=== PATIENT | female | born 1950 | race Caucasian/White ===

== ENCOUNTER → 2017-03-13 | Outpatient (CLI) | payer MEDICARE ==
[~2017-03-13] MED LIST: ASPI325T33 PO; B COTAB3 PO; CALC500T21 PO; DENO60P SQ; DICL75TA PO; FERR324T4 PO; HYDR-3580 PO; LATA.005%O OU; LATA0.002 EACH EYE; NORC7.5T PO; PRAV40TA2 PO; TRAM50TA PO; VITA500T10 PO; XARE10TA PO
[2017-03-13 09:33] LABS: BASOPHIL # 0.1 TH/MM3 (0-0.2); EOSINOPHIL # 0.2 TH/MM3 (0-0.4); EOSINOPHIL % 3.4 % (0.0-4.0); HEMATOCRIT 36.2 % (35.0-46.0); HEMO FLAGS DIFF FINAL; LYMPHOCYTE # 1.9 TH/MM3 (1.0-4.8); MEAN CELL VOLUME 87.5 FL (80.0-100.0); MEAN CORPUSCULAR HEMOGLOBIN 29.6 PG (27.0-34.0); MEAN CORPUSCULAR HGB CONC 33.8 % (32.0-36.0); MONO % 10.3 % (0.0-8.0); NEUT % 52.3 % (16.0-70.0); PLATELET COUNT 230 TH/MM3 (150-450); RED BLOOD COUNT 4.13 MIL/MM3 (4.00-5.30); RED CELL DISTRIBUTION WIDTH 12.9 % (11.6-17.2); WHITE BLOOD COUNT 5.7 TH/MM3 (4.0-11.0)
[2017-03-13 09:38] LABS: BLOOD, URINE TRACE (NEG); GLUCOSE,URINE NEG (NEG); KETONE, URINE NEG (NEG); NITRITE,URINE NEG (NEG); PH, URINE 5.5 (5.0-8.5); SQUAMOUS EPITHELIAL CELL URINE 1 /hpf (0-5); TRANSITIONAL EPI CELLS, URINE <1 /hpf; URINE COLOR LIGHT-YELLOW (YELLW/STRAW)
[2017-03-13 09:42] LABS: APTT (PATIENT) 25.6 SEC (24.3-30.1)
[2017-03-13 09:42] LABS: COMMENT (UR) CATH-CULT NOT IND; CULTURE IF INDICATED CATH CULTURE NOT IND
[2017-03-13 09:58] LABS: BICARBONATE 27.7 MEQ/L (21.0-32.0); POTASSIUM 4.6 MEQ/L (3.5-5.1)
--- NOTE | 2017-03-14 14:40 | EKG ---
Date Performed: 03/13/2017 Time Performed: 08:23:42 PTAGE: 66 years EKG: Sinus rhythm POSSIBLE LEFT ATRIAL ENLARGEMENT BORDERLINE ECG Compared to prior tracing no significant change PREVIOUS TRACING : 07/01/2013 09.11 DOCTOR: Krissy Olguin Interpretating Date/Time 03/14/2017 14:35:02
== END ==
LOC: CPRE 07:54
PROVIDERS: ATTEND Orthopaedic Surgery Orthopaedic Surgery of the Spine
DX: Z01.810 Encounter for preprocedural cardiovascular examination (principal); Z01.812 Encounter for preprocedural laboratory examination; Z79.01 Long term (current) use of anticoagulants; M16.12 Unilateral primary osteoarthritis, left hip; R94.31 Abnormal electrocardiogram [ECG] [EKG]
CPT/HCPCS: 36415; 80048; 81001; 85025; 85610; 85730; 93005

== ENCOUNTER 2017-03-23 05:43 | Inpatient (IN) | payer MEDICARE ==
[~2017-03-23] VITALS: Ht 162.6 cm; Wt 79.9 kg
[~2017-03-23 05:43] MED LIST changes: -ASPI325T33 PO; -B COTAB3 PO; -CALC500T21 PO; -FERR324T4 PO; -HYDR-3580 PO; -LATA.005%O OU; -NORC7.5T PO; -VITA500T10 PO; -XARE10TA PO
[2017-03-23] MEDS ORDERED: POVIDONE IODINE 5% (ANTISEPSIS KIT) 4 APPLICATIONS EACH NARE PRN (06:30)
[2017-03-23] MEDS ORDERED: ceFAZolin 2 GM PREMIX 50 ML IV SCH (06:30)
[2017-03-23] MEDS ORDERED: POVIDONE IODINE 7.5% SCRUB 118 ML BOTTLE TOPICAL SCH (06:30)
[2017-03-23] MEDS ORDERED: SODIUM CHLORID 0.9% 500 ML IV PRN (06:30)
[2017-03-23] MEDS ORDERED: INSULIN HUMAN REGULAR 1,000 UNITS/10 ML VIAL SQ PRN (06:30)
[2017-03-23] MEDS ORDERED: CHLORHEXIDINE GLUCONATE 2 % 1 PACK (2 CLOTHS) TOPICAL PRN (06:30)
[2017-03-23] MEDS ORDERED: LACTATED RINGER'S 1000 ML IV PRN (06:30)
[2017-03-23] MEDS ORDERED: EXPAREL PERI-ARTICULAR INJECTION (TOTAL VOL. 60 ML) P-ARTICULR SCH ×2 (06:30)
[2017-03-23] MEDS ORDERED: SODIUM CHLORIDE 0.9% IV SCH (06:30)
[2017-03-23] MEDS ORDERED: METOPROLOL TARTRATE 25 MG TAB PO PRN (06:30)
[2017-03-23] MEDS ORDERED: VANCOMYCIN 1000 MG/NS 250 ML (for <70 kg) IV SCH ×2 (06:30)
[2017-03-23] MEDS ORDERED: TRANEXAMIC ACID IV SCH (06:30)
[2017-03-23] MEDS ORDERED: GENTAMICIN SULFATE 80 MG/2 ML VIAL ONE ×2 (07:12→07:17)
[2017-03-23] MEDS ORDERED: APREPITANT 40 MG CAP ONE (07:58)
[2017-03-23] MEDS ORDERED: ACETAMINOPHEN 1000 MG/100 ML 100 ML IV ONE (07:58)
[2017-03-23] MEDS ORDERED: MORPHINE SULFATE 8 MG/ML INJ IM PRN (09:15)
[2017-03-23] MEDS ORDERED: NALOXONE HCL 0.4 MG/ML AMP IV PUSH PRN (09:15)
[2017-03-23] MEDS ORDERED: MISCELLANEOUS PHARMACY INFORMATION XX ONE (09:15)
[2017-03-23] MEDS ORDERED: ACETAMINOPHEN/HYDROcodone 325 MG/7.5 MG TAB PO PRN (09:15)
[2017-03-23] MEDS ORDERED: MISCELLANEOUS NURSING INFORMATION XX PRN (09:15)
[2017-03-23] MEDS ORDERED: Post-op Orders (for Pharmacy) XX ONE (09:15)
[2017-03-23] MEDS ORDERED: HYDR-3580 PO (09:18)
[2017-03-23] MEDS ORDERED: ASPI325T33 PO (09:18)
[2017-03-23] MEDS ORDERED: MORPHINE SULFATE 30 MG/30 ML PCA IV SCH (10:30)
--- NOTE | 2017-03-23 10:58 | PD.OP ---
cc: Sammy Sigala MD Operative Report Date of Surgery: Mar 23, 2017 Preoperative Diagnosis: Osteoarthritis left hip Postoperative Diagnosis: Same Procedure: Left total hip replacement arthroplasty, direct anterior exposure Anesthesia: Gen. Surgeon: Sammy Sigala Director Of Publications(s): GARY Francisco Operation and Findings: EBL: 400 cc INDICATION: This patient presents with significant hip pain related to osteoarthritis of the left hip. Despite extensive conservative care this patient continues to be painful and now presents for surgical treatment. NOTE: Kisha Francisco PA-C was present for the entire surgical procedure as my surveyor's assistant. In my medical opinion her skill and care was necessary for the proper management of this patient. COMPONENTS: COMPANY: [employer] CUP: Casar, 50 mm, 100 series, gription surface LINER: Altrx 32, neutral STEM: [place]ail, size 10, varus neck (125), hydroxyapatite-coated HEAD: Ceramic, 32 mm, +5, 12/14 taper PROCEDURE: This patient was brought to the operating room and anesthetized in the supine position and positioned on the fracture table with both legs held extended. The left hip and leg was scrubbed with alcohol followed by Hibiclens followed by ChloraPrep and draped sterilely. Antibiotics were given within routine time window and a timeout was done. A 4 inch incision was made starting 2 cm distal and 2 cm lateral to the anterior superior iliac spine. The fascia eric was opened longitudinally. The interval between the fascia eric and the rectus was opened down to the capsule of the hip joint. Retractors were positioned allowing good visualization of the capsule. This was opened longitudinally and flaps were created. Stay sutures were utilized. Exposure was excellent. The neck was cut at the proper location using fluoroscopy as a guide. The head was removed. Deep retractors were positioned allowing good visualization of the acetabulum. Acetabulum was deepened down to the floor starting with a proper size reamer and reaming up to 49 mm. A trial was utilized. Fluoroscopy was used to check position and confirmed satisfactory alignment. The rim was reamed with a 50 mm reamer and the final cup was positioned in approximately 20 of anteversion and 40-45 of abduction. Position was satisfactory. A single hole eliminator was positioned followed by the final liner. The lifting hook was utilized. The leg was dropped to the floor, maximally externally rotated and brought across the midline. Retractors were positioned. A box osteotome was utilized followed by progressive broaching to the proper stem size. Trial reduction showed excellent alignment and fit. With 60 of external rotation the leg was dropped to the floor without evidence of anterior subluxation. The wound was irrigated. The final stem was inserted and was found to be very stable. The final reduction using the final head. Stability was as previously noted. Intraoperative x-rays were taken. The wound was irrigated copiously. Hemostasis was controlled. Local anesthesia was utilized. The capsule was repaired with #2 Tycron sutures. The fascia eric was repaired with running 0 PDS on a loop. Subcutaneous tissue was approximated with 2-0 Vicryl and skin with running intradermal 3-0 Vicryl followed by Steri-Strips. A sterile dressing was applied. The patient was awakened and taken to the recovery room in satisfactory condition. FINDINGS: There was severe osteoarthritis of the left hip. Significant loss of articular cartilage and femoral head bone stock, even more than appreciated on the x-ray. A large effusion was seen with aggressive synovitis. The final solution appeared to be excellent. There was no complication that was appreciated Sammy Sigala MD Mar 23, 2017 10:58
--- NOTE | 2017-03-23 11:01 | HHI.FF ---
Face to Face Verification Diagnosis: (1) Primary osteoarthritis of left hip Physical Therapy Gait training Hip: Total hip, Protocol: Left Right LE Weight Bearing: WB as tolerated Left LE Weight Bearing: WB as tolerated Nursing RN: 3 days/week x 2 weeks Nursing: Other Dressing Changes: Do not change dressing I have seen patient Glenis Bautista on 03/23/17. My clinical findings support the need for the requested home health care services because: Limited ability to care for self High risk of falls I certify that my clinical findings support that this patient is homebound because: Post-op weakness Sammy Sigala MD Mar 23, 2017 11:01
[2017-03-23] MEDS ORDERED: DO NOT ADM ANY ANTICOAGULANT DRUGS PRN (11:33)
--- NOTE | 2017-03-23 11:34 | RADRPT ---
EXAM DATE/TIME: 03/23/2017 09:30 [facility] COMPARISON: No previous studies available for comparison. INDICATIONS : Post-op total left hip arthroplasty. MEDICAL HISTORY : None. SURGICAL HISTORY : Total right hip arthroplasty. ENCOUNTER: Initial ACUITY: 1 day PAIN SCORE: Non-responsive. LOCATION: Left hip. FINDINGS: A two view examination of the left hip was performed. Postsurgical changes are noted following joint replacement. Acetabular and femoral components are well-seated and satisfactory alignment. There are no acute bony abnormalities. CONCLUSION: Satisfactory postoperative appearance of the left hip status post replacement. Tylor Bravo MD on March 23, 2017 at 11:31 Board Certified Radiologist. This report was verified electronically.
[2017-03-23] MEDS ORDERED: *HYDROmorphone PF 1 MG VIAL PERIprocedural Use ONLY ONE (12:06)
[2017-03-23] MEDS ORDERED: HYDROmorphone HCL PCA 6 MG/30 ML IV ONE (12:07)
[2017-03-23] MEDS: LACTATED RINGER'S 1000 ML INJ 1,000 ML IV SCH ×2 (12:50→23:57)
[2017-03-23] MEDS ORDERED: HYDROmorphone HCL PF 2 MG/ML VIAL IV PRN (13:00)
[2017-03-23] MEDS ORDERED: HYDROmorphone HCL PCA 6 MG/30 ML IV SCH (13:00)
[2017-03-23 13:55] VITALS: BP 109/75; PULSE 84; RESP 18; TEMP 95.4; O2SAT 99
[2017-03-23] MEDS ORDERED: PCA - TOTAL MG MORPHINE DELIVERED PER SHIFT SCH (14:00)
[2017-03-23] MEDS: PCA - TOTAL MG DILAUDID DELIVERED PER SHIFT SCH ×2 (14:00→22:00)
[2017-03-23] MEDS: ACETAMINOPHEN/HYDROcodone 325 MG/7.5 MG TAB PO PRN ×2 (14:19→19:28)
[2017-03-23] MEDS: ONDANSETRON HCL 4 MG/2 ML VIAL IV PUSH PRN (16:09)
[2017-03-23] MEDS ORDERED: WALKER/ADULT/FO1 MIS (16:25)
--- NOTE | 2017-03-23 16:41 | HHI.DCPOC ---
Discharge Care Plan Diagnosis: (1) Primary osteoarthritis of left hip Your Health Problems Are: Incision/Drains Inflammation Swelling Goals to Promote Your Health * To prevent worsening of your condition and complications * To maintain your health at the optimal level Directions to Meet Your Goals Take your medications as prescribed Follow your dietary instruction Follow activity as directed Keep your appointments as scheduled Take your immunizations and boosters as scheduled If your symptoms worsen call your PCP, if no PCP go to Urgent Care Center or Emergency Room Smoking is Dangerous to Your Health. Avoid second hand smoke Call the 24-hour hour crisis hotline for domestic abuse at Sammy Sigala MD Mar 23, 2017 16:41
--- NOTE | 2017-03-23 16:44 | HHI.DS ---
Discharge Summary Admission Date Mar 23, 2017 at 05:43 Discharge Date: Mar 25, 2017 Admitting Diagnosis Osteoarthritis left hip Diagnosis: (1) Primary osteoarthritis of left hip ICD Codes: M16.12 - Unilateral primary osteoarthritis, left hip Procedures Left total hip replacement arthroplasty, direct anterior exposure Brief History This is a 66 year old female patient with a known history of osteoarthritis of left hip. She been treated now for almost 2 years with injections, medications , physical therapy and altered activities. She's had a previous right hip replacement performed 4-5 years ago and has done well. She presents for elective left hip replacement arthroplasty Imaging Satisfactory hip replacement arthroplasty, performed intraoperatively PE at Discharge Stable physically. No significant drainage. Incision dry. Ambulating with a walker Hospital Course This patient was admitted electively for hip replacement surgery. She was taken to the operating room on the date of admission and had surgery performed under a general anesthetic. She had a benign postoperative course. She recovered well. She proceeded to physical therapy. Gait training with weightbearing as tolerated. She was taking [place] for pain and aspirin for anticoagulation. She was discharged postop day #1 Pt Condition on Discharge: Good Discharge Disposition: Discharge Home Discharge Instructions Diet Instructions: As Tolerated, No Restrictions Activities You Can Perform: Weight Bearing as Sammy Malik MD Mar 23, 2017 16:44
[2017-03-23 16:45] VITALS: O2SAT 99
[2017-03-23] MEDS ORDERED: COMMODE 3-IN-11 MIS (16:48)
[2017-03-23 20:00] VITALS: BP 115/57; PULSE 92; RESP 18; TEMP 98.5; O2SAT 100
[2017-03-23] MEDS: ASPIRIN EC 325 MG TABEC PO SCH (20:27)
[2017-03-23] MEDS: MAGNESIUM HYDROXIDE SUSP 30 ML CUP PO SCH (20:27)
[2017-03-23] MEDS: SENNOSIDES 8.6 MG TAB PO SCH (20:27)
[2017-03-23] MEDS: LATANOPROST 0.005% OPHT SOLN 2.5 ML BTL EACH EYE SCH (21:04)
[2017-03-24] VITALS: BP 100/55; PULSE 104; RESP 18; TEMP 99.3; O2SAT 98
[2017-03-24 04:00] VITALS: BP 111/55; PULSE 93; RESP 18; TEMP 98.9; O2SAT 100
[2017-03-24] MEDS: ACETAMINOPHEN/HYDROcodone 325 MG/7.5 MG TAB PO PRN ×3 (04:39→18:53)
[2017-03-24] MEDS: PCA - TOTAL MG DILAUDID DELIVERED PER SHIFT SCH ×4 (06:00→22:28)
[2017-03-24 06:22] LABS: HEMATOCRIT 27.4 % (35.0-46.0); REVIEW FLAG FINAL
[2017-03-24 08:00] VITALS: BP 112/58; PULSE 90; RESP 20; TEMP 99; O2SAT 99
--- NOTE | 2017-03-24 08:12 | PD.ORT.PN ---
Subjective Subjective Remarks Looks very good. No significant pain. Very comfortable Objective Vitals Vital Signs Date Time Temp Pulse Resp B/P (MAP) Pulse Ox O2 Delivery O2 Flow Rate FiO2 03/24/17 06:00 18 03/24/17 05:15 16 03/24/17 04:00 98.9 93 18 111/55 (73) 100 03/24/17 00:00 99.3 104 18 100/55 (70) 98 03/23/17 22:41 Nasal Cannula 2.00 03/23/17 22:00 17 03/23/17 20:00 98.5 92 18 115/57 (76) 100 03/23/17 16:45 99 Nasal Cannula 3.00 03/23/17 13:55 95.4 84 18 109/75 (86) 99 03/23/17 13:15 84 13 135/66 (89) 100 Nasal Cannula 2 03/23/17 13:00 97.8 67 12 130/64 (86) 100 Nasal Cannula 2 03/23/17 12:59 15 03/23/17 12:45 67 12 148/72 (97) 100 Nasal Cannula 2 03/23/17 12:30 75 12 148/73 (98) 100 Nasal Cannula 3 03/23/17 12:15 86 14 144/76 (98) 96 Nasal Cannula 4 03/23/17 12:00 84 13 150/82 (104) 95 Nasal Cannula 4 03/23/17 11:45 81 12 132/69 (90) 99 Nasal Cannula 4 03/23/17 11:36 97.8 109 16 153/76 (101) 86 Nasal Cannula 4 I/O 03/23/17 03/23/17 03/23/17 03/24/17 03/24/17 03/24/17 07:00 15:00 23:00 07:00 15:00 23:00 Intake Total 2040.4 ml 680 ml 1300 ml Output Total 400 ml Balance 1640.4 ml 680 ml 1300 ml Intake Oral 480 ml 240 ml IV Total 40.4 ml 200 ml 1060 ml Other 2000 ml Output Estimated Blood Loss 400 ml # Voids 1 2 2 # Bowel Movements 0 0 Result Diagram: 03/24/17 0550 Procedures Left total hip replacement arthroplasty, direct anterior exposure Objective Remarks Dressing dry. No significant swelling. Sensation distally normal. No calf tenderness Assessment & Plan Ortho Post Op Day #: 1 Problem List: (1) Primary osteoarthritis of left hip ICD Codes: M16.12 - Unilateral primary osteoarthritis, left hip Assessment and Plan Osteoarthritis left hip, severe. Surgery: Left SANTOS, direct anterior: POD #1. PLAN: Weightbearing as tolerated Discharge today [place] for pain Enteric-coated aspirin for DVT prophylaxis Follow-up in 2 weeks Physical therapy and home health care nurse Sammy Sigala MD Mar 24, 2017 08:11
[2017-03-24] MEDS: MAGNESIUM HYDROXIDE SUSP 30 ML CUP PO SCH ×2 (08:38→19:59)
[2017-03-24] MEDS: PRAVASTATIN SOD 40 MG TAB PO SCH (08:39)
[2017-03-24] MEDS: LACTATED RINGER'S 1000 ML INJ 1,000 ML IV SCH ×3 (08:39→20:05)
[2017-03-24] MEDS: ASPIRIN EC 325 MG TABEC PO SCH ×2 (08:39→19:58)
[2017-03-24] MEDS: ONDANSETRON HCL 4 MG/2 ML VIAL IV PUSH PRN (11:05)
[2017-03-24 12:00] VITALS: BP 98/54; PULSE 88; RESP 20; TEMP 98.3; O2SAT 99
[2017-03-24 16:00] VITALS: BP 108/54; PULSE 88; RESP 20; TEMP 97.9; O2SAT 100
[2017-03-24] MEDS: LATANOPROST 0.005% OPHT SOLN 2.5 ML BTL EACH EYE SCH (19:58)
[2017-03-24] MEDS: SENNOSIDES 8.6 MG TAB PO SCH (19:59)
[2017-03-24 20:00] VITALS: BP 103/59; PULSE 97; RESP 18; TEMP 98; O2SAT 96
[2017-03-25] VITALS: BP 107/53; PULSE 112; RESP 18; TEMP 99.4; O2SAT 95
--- NOTE | 2017-03-25 07:31 | PD.ORT.PN ---
Subjective Subjective Remarks POD 2 s/p left anterior SANTOS doing well. pain controlled. has had issues with BP. out of bed to bathroom., Objective Vitals Vital Signs Date Time Temp Pulse Resp B/P (MAP) Pulse Ox O2 Delivery O2 Flow Rate FiO2 03/25/17 00:00 99.4 112 18 107/53 (71) 95 03/24/17 20:00 98.0 97 18 103/59 (74) 96 03/24/17 16:00 97.9 88 20 108/54 (72) 100 03/24/17 12:00 98.3 88 20 98/54 (69) 99 03/24/17 09:39 16 03/24/17 08:00 99.0 90 20 112/58 (76) 99 I/O 03/24/17 03/24/17 03/24/17 03/25/17 03/25/17 03/25/17 07:00 15:00 23:00 07:00 15:00 23:00 Intake Total 1300 ml 480 ml 1480 ml 1040 ml Balance 1300 ml 480 ml 1480 ml 1040 ml Intake Oral 240 ml 480 ml 480 ml 240 ml IV Total 1060 ml 1000 ml 800 ml # Voids 2 3 2 2 # Bowel Movements 0 2 0 Result Diagram: 03/24/17 0550 Procedures Left total hip replacement arthroplasty, direct anterior exposure Objective Remarks LLE: dressings clean and dry. intact. NVI. neg shirin. Assessment & Plan Problem List: (1) Primary osteoarthritis of left hip ICD Codes: M16.12 - Unilateral primary osteoarthritis, left hip Assessment and Plan Osteoarthritis left hip, severe. Surgery: Left SANTOS, direct anterior: POD #2 PLAN: Weightbearing as tolerated plan for DC home today with [facility] as long as BP issues resolved. if still an issues, ok to keep til tomorrow [place] for pain Enteric-coated aspirin for DVT prophylaxis Follow-up in 2 weeks Physical therapy and home health care nurse Prateek Hammond/[facility] Mar 25, 2017 07:31
[2017-03-25 07:40] VITALS: BP 121/62; PULSE 104; RESP 18; TEMP 99.5; O2SAT 98
[2017-03-25] MEDS: PRAVASTATIN SOD 40 MG TAB PO SCH (08:29)
[2017-03-25] MEDS: ASPIRIN EC 325 MG TABEC PO SCH (08:29)
[2017-03-25] MEDS: ACETAMINOPHEN/HYDROcodone 325 MG/7.5 MG TAB PO PRN (08:30)
[2017-03-25] MEDS: MAGNESIUM HYDROXIDE SUSP 30 ML CUP PO SCH (08:31)
[2017-03-25 11:33] VITALS: BP 95/55; PULSE 98; RESP 18; TEMP 97.2; O2SAT 96
== END 2017-03-25 13:12 | disposition home health service (06) | DRG 470 ==
LOC: HSDI 05:43 → N06B 13:21
PROVIDERS: ADMIT Orthopaedic Surgery Orthopaedic Surgery of the Spine; ATTEND Orthopaedic Surgery Orthopaedic Surgery of the Spine
PROC: 0SRB04A Replacement of Left Hip Joint with Ceramic on Polyethylene Synthetic Substitute, Uncemented, Open Approach (ICD-10-PCS; principal; 2017-03-23 08:32)
DX: M16.12 Unilateral primary osteoarthritis, left hip (principal); I95.9 Hypotension, unspecified; E78.5 Hyperlipidemia, unspecified; M25.452 Effusion, left hip; M65.9 Synovitis and tenosynovitis, unspecified
CPT/HCPCS: 73502; 76000; 85014; 85018; 86850; 86890; 86900; 86901; 86920; 94150; C1776; C9290; J0131; J0690; J1170; J1580; J2405; J3370; J7050; J7120; J8501